=== PATIENT | female | born 1945 | race Caucasian/White ===

== ENCOUNTER 2018-09-07 09:45 | Emergency (ER) | payer MEDICAID ==
[2018-09-07 11:26] LABS: ADD MAN DIFF? NO
[2018-09-07 11:29] LABS: WHITE BLOOD COUNT 8.4 10^3/ul (4.8-10.8)
[2018-09-07 11:29] LABS: BASOPHILS % 0.2 % (0.0-2.0); EOSINOPHILS # 0.2 10^3/ul (0.0-0.5); EOSINOPHILS % 2.6 % (0.0-7.0); HEMATOCRIT 35.9 % (37.0-47.0); HEMOGLOBIN 12.5 g/dl (12.0-16.0); LYMPHOCYTES # 1.1 10^3/ul (0.8-2.9); LYMPHOCYTES % 13.4 % (15.0-51.0); MEAN CORPUSCULAR HEMOGLOBIN 30.8 pg (29.0-33.0); MEAN CORPUSCULAR HGB CONC 34.8 g/dl (32.0-37.0); MEAN CORPUSCULAR VOLUME 88.4 fl (82.0-101.0); MEAN PLATELET VOLUME 9.7 fl (7.4-10.4); MONOCYTE # 0.8 10^3/ul (0.3-0.9); MONOCYTES % 9.8 % (0.0-11.0); NEUTROPHIL # 6.2 10^3/ul (1.6-7.5); NEUTROPHILS % 73.6 % (39.0-77.0); PLATELET COUNT 305 10^3/UL (140-415); RED BLOOD COUNT 4.06 10^6/ul (4.20-5.40); RED CELL DISTRIBUTION WIDTH 11.9 % (11.5-14.5)
[2018-09-07 11:50] LABS: ALANINE AMINOTRANSFERASE 437 IU/L (13-69); ALBUMIN 4.3 g/dl (3.3-4.9); ALBUMIN/GLOBULIN RATIO 1.16; ALKALINE PHOSPHATASE 353 IU/L (42-121); ANION GAP 9 (5-13); ASPARTATE AMINO TRANSFERASE 242 IU/L (15-46); BILIRUBIN,INDIRECT 0.7 mg/dl (0-1.1); BLOOD UREA NITROGEN 9 mg/dl (7-20); CALCIUM 9.4 mg/dl (8.4-10.2); CARBON DIOXIDE 29 mmol/L (21-31); CHLORIDE 97 mmol/L (97-110); CREATININE 0.65 mg/dl (0.44-1.00); GLUCOSE 106 mg/dl (70-220); POTASSIUM 3.9 mmol/L (3.5-5.1); SODIUM 135 mmol/L (135-144)
== END 2018-09-07 14:12 | disposition home or self-care (01) ==
LOC: FTE 09:45
DX: L29.9 Pruritus, unspecified (principal); R41.0 Disorientation, unspecified; I10 Essential (primary) hypertension; Z79.82 Long term (current) use of aspirin; Z86.73 Personal history of transient ischemic attack (TIA), and cerebral infarction without residual deficits
CPT/HCPCS: 70450; 73510; 80053; 85025; 93005; 99285-25

== ENCOUNTER 2018-09-09 09:24 | Emergency (ER) | payer MEDICAID ==
[2018-09-09] MEDS: NICARDipine HCL 30 MG CAPSULE PO (10:08)
== END 2018-09-09 10:35 | disposition home or self-care (01) ==
LOC: FTE 10:35
DX: B86 Scabies (principal); I10 Essential (primary) hypertension; Z79.82 Long term (current) use of aspirin; Z86.73 Personal history of transient ischemic attack (TIA), and cerebral infarction without residual deficits
CPT/HCPCS: 99283

== ENCOUNTER 2018-09-23 11:42 | Emergency (ER) | payer MEDICAID | END 2018-09-23 12:25 | disposition home or self-care (01) | LOC: FTE 11:42 | DX: R21 Rash and other nonspecific skin eruption (principal); I10 Essential (primary) hypertension; Z79.82 Long term (current) use of aspirin; Z86.73 Personal history of transient ischemic attack (TIA), and cerebral infarction without residual deficits | CPT/HCPCS: 99283; Z7502 ==

== ENCOUNTER 2018-12-23 10:10 | Emergency (ER) | payer MEDICAID ==
[2018-12-23] MEDS: ACETAMINOPHEN 325 MG TAB PO (11:37)
== END 2018-12-23 12:44 | disposition home or self-care (01) ==
LOC: FTE 10:10
DX: S42.032A Displaced fracture of lateral end of left clavicle, initial encounter for closed fracture (principal); I10 Essential (primary) hypertension; W18.30XA Fall on same level, unspecified, initial encounter; Y92.9 Unspecified place or not applicable; Z79.82 Long term (current) use of aspirin; Z86.73 Personal history of transient ischemic attack (TIA), and cerebral infarction without residual deficits
CPT/HCPCS: 73030; 93005; 99284-25

== ENCOUNTER 2019-02-28 12:21 | Emergency (ER) | payer MEDICAID | END 2019-02-28 13:59 | disposition home or self-care (01) | LOC: FTE 12:21 | DX: R09.89 Other specified symptoms and signs involving the circulatory and respiratory systems (principal); I10 Essential (primary) hypertension; Z79.82 Long term (current) use of aspirin; Z86.73 Personal history of transient ischemic attack (TIA), and cerebral infarction without residual deficits | CPT/HCPCS: 99283; Z7502 ==

== ENCOUNTER 2019-03-30 10:34 | Emergency (ER) | payer MEDICAID ==
[2019-03-30] MEDS: DEXAMETHASONE 10 MG/ML 1 ML INJ IM (11:08)
[2019-03-30] MEDS: KETOROLAC 60 MG INJ IM (11:09)
[2019-03-30 11:25] LABS: URINE BLOOD (Dip) POC Negative (NEGATIVE); URINE GLUCOSE (Dip) POC Negative (NEGATIVE); URINE KETONES (Dip) POC Negative (NEGATIVE); URINE LEUKOCYTE EST (Dip) POC Trace (NEGATIVE); URINE NITRITE (Dip) POC Negative (NEGATIVE); URINE TOTAL PROTEIN POC Negative (NEGATIVE)
== END 2019-03-30 13:02 | disposition home or self-care (01) ==
LOC: FTE 10:34
DX: M54.9 Dorsalgia, unspecified (principal); Z86.73 Personal history of transient ischemic attack (TIA), and cerebral infarction without residual deficits
CPT/HCPCS: 72131; 81003; 96372; 99285-25